=== PATIENT | female | born 1960 | race African-American/Black ===

== ENCOUNTER 2016-11-17 04:02 | Emergency (ER) | payer MEDICAID ==
[~2016-11-17] VITALS: Ht 167.6 cm; Wt 64.0 kg
[2016-11-17] MEDS ORDERED: IBUPROFEN 600MG TABLET PO ONE (05:45)
[2016-11-17 06:15] VITALS: BP 148/74
== END 2016-11-17 09:53 | disposition home or self-care (01) ==
LOC: ER 09:41
DX: S43.401A Unspecified sprain of right shoulder joint, initial encounter (principal); F12.90 Cannabis use, unspecified, uncomplicated; W01.0XXA Fall on same level from slipping, tripping and stumbling without subsequent striking against object, initial encounter; Y93.K1 Activity, walking an animal; Y92.89 Other specified places as the place of occurrence of the external cause
CPT/HCPCS: 99283

== ENCOUNTER 2018-06-18 07:40 | Emergency (ER) | payer MEDICAID, OTHER ==
[~2018-06-18] VITALS: Ht 160 cm; Wt 72.3 kg
[2018-06-18 08:40] LABS: BASOPHILS % 0.6 % (0.0-2.0); EOSINOPHILS % 0.9 % (0.0-5.0); HEMATOCRIT. 37.4 % (36.0-48.0); HEMOGLOBIN. 12.4 g/dL (12.0-16.0); LYMPHOCYTES % 12.9 % (20.0-50.0); MEAN CORPUSCULAR HEMOGLOBIN 28.3 pg (28.0-32.0); MEAN CORPUSCULAR VOLUME 85.5 fL (81.0-99.0); MEAN PLATELET VOLUME 8.8 fl (7.4-10.4); MONOCYTES % 4.7 % (2.0-8.0); NEUTROPHILS % 80.9 % (40.0-76.0); PLATELET 225 x1000/uL (130-400); RED BLOOD CELL COUNT 4.38 mill/uL (4.2-5.4); RED CELL DISTRIBUTION WIDTH 14.7 % (11.6-14.6)
[2018-06-18 08:44] LABS: CHLORIDE 104 mEq/L (98-107)
[2018-06-18 09:01] LABS: T4 FREE 0.94 ng/dL (0.76-1.46)
[2018-06-18] MEDS ORDERED: DEXAMETHASONE 10 MG/ML VIAL IM ONE (09:30)
[2018-06-18 09:34] VITALS: BP 152/94
== END 2018-06-18 09:51 | disposition left against medical advice (07) ==
LOC: ER 07:40
DX: R22.1 Localized swelling, mass and lump, neck (principal); E04.9 Nontoxic goiter, unspecified; J98.8 Other specified respiratory disorders; Z91.018 Allergy to other foods
CPT/HCPCS: 36415; 70490; 80053; 84439; 84443; 85025; 87070; 87430; 96372; 99285; J1100

== ENCOUNTER 2018-06-18 11:24 | Emergency (ER) | payer MEDICAID ==
[~2018-06-18] VITALS: Ht 160 cm; Wt 73.0 kg
[2018-06-18 13:03] LABS: CLARITY URINE CLEAR (CLEAR); COLOR URINE YELLOW (YELLOW); KETONES URINE 2+ (NEGATIVE); LEUKOCYTE ESTERASE URINE NEGATIVE (NEGATIVE); NITRITE URINE NEGATIVE (NEGATIVE); OCCULT BLOOD URINE NEGATIVE (NEGATIVE); PH URINE 5.5 (4.5-8.0); PROTEIN URINE NEGATIVE (NEGATIVE); UROBILINOGEN URINE 0.2 E.U./dL (0.2-1.0)
[2018-06-18 13:38] LABS: PARTIAL THROMBOPLASTIN TIME 25.7 sec (23.4-31.0)
[2018-06-18 16:01] VITALS: BP 151/86
== END 2018-06-18 16:31 | disposition short-term general hospital (02) ==
LOC: ER 11:24
DX: R22.1 Localized swelling, mass and lump, neck (principal); E04.9 Nontoxic goiter, unspecified; Z91.018 Allergy to other foods
CPT/HCPCS: 36415; 71045; 93005; 99285

== ENCOUNTER 2019-12-24 15:30 | Emergency (ER) | payer MEDICAID ==
[~2019-12-24] VITALS: Ht 160 cm; Wt 59.0 kg
[2019-12-24 15:43] VITALS: BP 135/84
[2019-12-24] MEDS ORDERED: SODIUM CHLORIDE 0.9% 1,000 ML IV ONE (16:06)
== END 2019-12-24 16:25 | disposition left against medical advice (07) ==
LOC: ER 15:30
DX: R13.10 Dysphagia, unspecified (principal); F10.129 Alcohol abuse with intoxication, unspecified; Y90.0 Blood alcohol level of less than 20 mg/100 ml; I10 Essential (primary) hypertension; F12.10 Cannabis abuse, uncomplicated; Z91.018 Allergy to other foods
CPT/HCPCS: 99281; J7030

== ENCOUNTER 2020-04-25 04:59 | Emergency (ER) | payer MEDICAID ==
[~2020-04-25] VITALS: Ht 160 cm; Wt 76.0 kg
[2020-04-25 05:32] VITALS: BP 210/128
[2020-04-25 06:07] LABS: BASOPHILS % 0.4 % (0.0-2.0); EOSINOPHILS % 0.1 % (0.0-5.0); HEMATOCRIT. 34.4 % (36.0-48.0); HEMOGLOBIN. 11.2 g/dL (12.0-16.0); MEAN CORPUSCULAR HEMOGLOBIN 28.4 pg (28.0-32.0); MEAN CORPUSCULAR VOLUME 86.8 fL (81.0-99.0); MEAN PLATELET VOLUME 8.4 fl (7.4-10.4); MONOCYTES % 3.9 % (2.0-8.0); NEUTROPHILS % 85.6 % (40.0-76.0); PLATELET 243 x1000/uL (130-400); RED BLOOD CELL COUNT 3.96 mill/uL (4.2-5.4); RED CELL DISTRIBUTION WIDTH 14.3 % (11.6-14.6)
[2020-04-25 06:14] LABS: CHLORIDE 106 mEq/L (98-107)
== END 2020-04-25 06:13 | disposition left against medical advice (07) ==
LOC: ER 04:59
DX: I10 Essential (primary) hypertension (principal); F41.9 Anxiety disorder, unspecified; R00.0 Tachycardia, unspecified; Z91.018 Allergy to other foods; Z98.890 Other specified postprocedural states
CPT/HCPCS: 36415; 80053; 83880; 84484; 85025; 93005; 99284